=== PATIENT | male | born 1980 ===

== ENCOUNTER 2017-03-31 11:19 | Emergency (ER) | payer OTHER ==
[2017-03-31 11:25] VITALS: BMI 27.3
[2017-03-31 11:29] VITALS: RESP 18; O2SAT 98
--- NOTE | 2017-03-31 13:04 | RAD ---
PROCEDURE: Right Hand Radiographs. HISTORY: Fractured 2 days ago. Splinted at other hospital. COMPARISON: None. FINDINGS: BONES: Cast obscures fine bony details. There is an acute comminuted displaced fracture in the distal aspect of the proximal phalanx of the 4th finger. JOINTS: Normal. No osteoarthritic changes. SOFT TISSUES: Normal. OTHER FINDINGS: None. IMPRESSION: Acute comminuted displaced fracture in the distal aspect of the proximal phalanx of the 4th finger. Please note cast obscures fine bony details.
--- NOTE | 2017-03-31 13:41 | C.PDOC ---
History Of Present Illness Pt states that a log fell on his right hand 2 days ago causing a fracture of his right ring finger. He was seen at an ED and placed in a splint. He is here requesting orthopedic followup. Time Seen by Provider: 03/31/17 11:57 Chief Complaint (Nursing): Finger,Hand,&Wrist History Per: Patient Onset/Duration Of Symptoms: Days (2) Current Symptoms Are (Timing): Still Present Severity: Moderate Additional History Per: Prior Records Past Medical History Reviewed: Historical Data, Nursing Documentation, Vital Signs Vital Signs: Last Vital Signs Temp 99 F 03/31/17 11:26 Pulse 107 H 03/31/17 11:26 Resp 18 03/31/17 11:26 BP 118/86 03/31/17 11:26 Pulse Ox 98 03/31/17 11:26 - Medical History PMH: No Chronic Diseases - [facility] Procedures DPT ADMINISTRATION (09/27/14) REMOV THERAPEUT DEV NEC (10/03/14) Family History: States: Unknown Family Hx - Social History Hx Alcohol Use: Yes Hx Substance Use: No - Immunization History Hx Tetanus Toxoid Vaccination: Yes Hx Influenza Vaccination: No Hx Pneumococcal Vaccination: No Review Of Systems Except As Marked, All Systems Reviewed And Found Negative. Constitutional: Negative for: Fever, Weakness Cardiovascular: Negative for: Chest Pain Respiratory: Negative for: Shortness of Breath Gastrointestinal: Negative for: Vomiting, Abdominal Pain Musculoskeletal: Positive for: Hand Pain (right). Negative for: Neck Pain Neurological: Negative for: Weakness, Numbness Physical Exam - Physical Exam Appears: Non-toxic, No Acute Distress Skin: Warm, Dry Head: Atraumatic, Normacephalic Eye(s): bilateral: PERRL, EOMI Neck: Normal ROM, No Midline Cervical Tenderness, No Step Off Deformity, Supple Extremity: Capillary Refill (wnl), Other (Right hand in a splint. Splint is clean, dry and intact.) Neurological/Psych: Oriented x3, Normal Motor, Normal Sensation ED Course And Treatment O2 Sat by Pulse Oximetry: 98 Pulse Ox Interpretation: Normal - Other Rad Right hand x-rays X-Ray: Viewed By Me, Read By Radiologist Interpretation: IMPRESSION: Acute comminuted displaced fracture in the distal aspect of the proximal phalanx of the 4th finger. Please note cast obscures fine bony details. Disposition Discussed With : Kvng Cooper (Hand surg.) Comment: I discussed with him the pt's presentation and x-ray findings. He states that he wants to see pt in his office. Doctor Will See Patient In The: Office Counseled Patient/Family Regarding: Studies Performed, Diagnosis, Need For Followup, Rx Given - Disposition Referrals: Kvng Cooper MD [Staff Provider] - Disposition: HOME/ ROUTINE Disposition Time: 13:43 Condition: FAIR Additional Instructions: Follow up with the Hand Surgeon for further evaluation and treatment. Return to the ER if you develop severe pain, weakness, numbness, worsening of symptoms or if you have any other concerns. Prescriptions: traMADol/Acetaminophen [Ultracet 325 MG-37.5 MG] 1 tab PO Q4 PRN #30 tab PRN Reason: Pain, Severe (8-10) Instructions: Finger Fracture (ED) - Clinical Impression Clinical Impression: Fracture of proximal phalanx of right ring finger
[2017-03-31 13:53] VITALS: BP 120/84; PULSE 98; TEMP 98.9
== END 2017-03-31 14:39 | disposition home or self-care (01) ==
LOC: C.ER 11:19
DX: S62.614D Displaced fracture of proximal phalanx of right ring finger, subsequent encounter for fracture with routine healing (principal); W22.8XXD Striking against or struck by other objects, subsequent encounter

== ENCOUNTER 2017-04-04 14:29 | Emergency (ER) | payer SELFPAY ==
[2017-04-04 14:29] VITALS: BMI 27.3
--- NOTE | 2017-04-04 16:34 | C.PDOC ---
History Of Present Illness 37 year old male presents to the ED for evaluation of a rash which began to the left side of his neck last night. He states the rash came on quickly and forcefully and is burning in nature. The rash does not cross the midline of his neck. Patient also complains of a rash that goes across his anterior abdomen which has been present for 2 months. Patient denies itchiness or burning to the area. Patient also complains of cough, watery eyes, runny nose, fever and sore throat for 4 days. Patient denies abdominal pain, nausea, vomiting, chest pain, and shortness of breath. Time Seen by Provider: 04/04/17 16:13 Chief Complaint (Nursing): Abnormal Skin Integrity History Per: Patient History/Exam Limitations: no limitations Onset/Duration Of Symptoms: Days Current Symptoms Are (Timing): Still Present Location Of Injury: Left: Neck, Anterior: Abdomen Quality Of Symptoms: Itching, Other (burning ) Additional History Per: Patient Past Medical History Reviewed: Historical Data, Nursing Documentation, Vital Signs Vital Signs: Last Vital Signs Temp 99.9 F H 04/04/17 16:43 Pulse 106 H 04/04/17 16:43 Resp 18 04/04/17 16:43 BP 112/76 04/04/17 16:43 Pulse Ox 127 H 04/04/17 17:39 - Medical History PMH: No Chronic Diseases Surgical History: No Surg Hx - [facility] Procedures DPT ADMINISTRATION (09/27/14) REMOV THERAPEUT DEV NEC (10/03/14) Family History: States: Unknown Family Hx - Social History Hx Alcohol Use: Yes Hx Substance Use: No - Immunization History Hx Tetanus Toxoid Vaccination: Yes Hx Influenza Vaccination: No Hx Pneumococcal Vaccination: No Review Of Systems Constitutional: Positive for: Fever, Chills Eyes: Positive for: Other (watery eyes ) ENT: Positive for: Nose Discharge, Throat Pain Cardiovascular: Negative for: Chest Pain, Palpitations Respiratory: Positive for: Cough. Negative for: Shortness of Breath Gastrointestinal: Negative for: Abdominal Pain Skin: Positive for: Rash (to left side of neck and across anterior abdomen ) Physical Exam - Physical Exam Appears: Non-toxic, No Acute Distress Skin: Warm, Dry, Rash (vesicular to left side of neck that is consistent with zoster. flat, nondescript papular rash over abdomen ), Other (flushed face ) Head: Atraumatic, Normacephalic Eye(s): bilateral: Other (watery ) Oral Mucosa: Moist Throat: Erythema (mild) Neck: Supple Chest: Symmetrical, No Deformity, No Tenderness Cardiovascular: Rhythm Regular, No Murmur Respiratory: Normal Breath Sounds, No Rales, No Rhonchi, No Wheezing Gastrointestinal/Abdominal: Soft, No Tenderness, No Guarding, No Rebound Back: No Vertebral Tenderness, No Paraspinal Tenderness Extremity: Normal ROM, Capillary Refill (less than 2 seconds ) Neurological/Psych: Oriented x3, Normal Speech, Normal Cognition ED Course And Treatment O2 Sat by Pulse Oximetry: 127 Medical Decision Making Medical Decision Making: Progress: Motrin PO administered. Patient found to be febrile with oral temperature of 100.8 in the ED. Will treat for Zoster and Influenza. Disposition Counseled Patient/Family Regarding: Diagnosis, Need For Followup, Rx Given - Disposition Referrals: at [facility] [Outside] Disposition: HOME/ ROUTINE Disposition Time: 16:29 Condition: STABLE Prescriptions: Ibuprofen [Motrin] 1 tab PO TID PRN #30 tab PRN Reason: Pain Oseltamivir [Tamiflu] 1 cap PO BID #10 cap Prednisone [Deltasone] 60 mg PO DAILY #15 tablet Valacyclovir HCl [Valtrex] 1,000 mg PO BID #20 tablet Instructions: Shingles (ED), Viral Syndrome (ED) Forms: Gen Discharge Inst [place], [facility] ([place]), Work Excuse - POA Present On Arrival: None - Clinical Impression Clinical Impression: Zoster, Viral syndrome - Scribe Statement The provider has reviewed the documentation as recorded by the Marisolibe (Trupti Talbot) Provider Attestation: All medical record entries made by the Scribe were at my direction and personally dictated by me. I have reviewed the chart and agree that the record accurately reflects my personal performance of the history, physical exam, medical decision making, and the department course for this patient. I have also personally directed, reviewed, and agree with the discharge instructions and disposition.
[2017-04-04 16:44] VITALS: BP 112/76; PULSE 106; RESP 18; TEMP 99.9
[2017-04-04 17:20] VITALS: O2SAT 127
== END 2017-04-04 16:50 | disposition home or self-care (01) ==
LOC: C.ER 14:29
DX: B02.9 Zoster without complications (principal); B34.9 Viral infection, unspecified

== ENCOUNTER 2017-04-21 12:35 | Day surgery (SDC) | payer SELFPAY ==
[2017-04-19 15:23] VITALS: BMI 27.4
[2017-04-21] MEDS ORDERED: ceFAZolin IV 2 gm in Dextrose 2 GM/50 ML BAG IVPB ONE (13:41)
[2017-04-21] MEDS ORDERED: Bacitracin Ointment 30 GM TUBE ONE (13:42)
[2017-04-21] MEDS ORDERED: Bupivacaine HCl 0.5% PF (10 ml) Inj ONE (13:42)
[2017-04-21] MEDS ORDERED: Lidocaine 1% Inj (20ml) ONE (14:09)
[2017-04-21] MEDS ORDERED: Lactated Ringer's 1,000 ML IV ONE (14:10)
[2017-04-21] MEDS ORDERED: Midazolam 2 MG/2 ML VIAL ONE (14:18)
[2017-04-21] MEDS ORDERED: Propofol 10 mg/ml Inj (20 ML) ONE (14:18)
[2017-04-21] MEDS ORDERED: Lidocaine Hydrochloride 5 ML INJ ONE (14:18)
[2017-04-21] MEDS ORDERED: ePHEDrine 50 mg/ml Inj ONE (14:53)
--- NOTE | 2017-04-21 16:18 | CP.SDSHP ---
Same Day Surgery H & P - History Proposed Procedure: ORIF - Allergies Allergies: Allergies No Known Allergies Allergy (Verified 04/04/17 14:52) - Physical Exam General Appearance: Well apearing no acute distress Vital Signs: Vital Signs 04/21/17 12:44 Temperature 98.4 F Pulse Rate 81 Respiratory 20 Rate Blood Pressure 113/72 O2 Sat by Pulse 98 Oximetry Neuro: WNL Heart: WNL Lungs: WNL GI: WNL - Impression Impression: Healthy and ready for operation Pt. Evaluated Today:Candidate for Anesthesia & Procedure: Yes - Date & Time Date: 04/21/17 Time: 16:16 Short Stay Discharge - Short Stay Discharge Admitting Diagnosis/Reason for Visit: DISP FX OF PROXIMAL PHALANX OF RIGHT RING FINGER, Disposition: HOME/ ROUTINE Follow-up: 7 days Instructions: ORIF (DC) Additional Instructions (Diet, Activity): Take percet as direted for pain dont operate heavy machinery whoike on medication, you may ice your arm as necessary, elevate your arm. Take keflex antibiotic as directed. If you develop new or worsening symptoms call the office or go to the ED.
--- NOTE | 2017-04-21 16:21 | PCM.SURG1 ---
Surgeon's Initial Post Op Note - Surgeon's Notes Surgeon: Dr. Melchor Kelp Or Seagrass Gatherer: Dr. Bourgeois PGY2 Type of Anesthesia: General Endo Pre-Operative Diagnosis: Right 3rd digit fracture Operative Findings: See operative diciation Post-Operative Diagnosis: Right 3rd digit fracture Operation Performed: ORIF of finger with 3X K wire placement Specimen/Specimens Removed: None Estimated Blood Loss: EBL {In ML}: 5 Blood Products Given: N/A Drains Used: No Drains Post-Op Condition: Good Date of Surgery/Procedure: 04/21/17 Time of Surgery/Procedure: 16:20
[2017-04-21 16:39] VITALS: TEMP 97.9; O2SAT 100
[2017-04-21 16:52] VITALS: BP 118/76; PULSE 82; RESP 12
--- NOTE | 2017-04-23 09:36 | OP ---
PROCEDURE DATE: 04/21/2017 SURGEON: Hanna Melchor MD COOLER WORKER: Milo Bourgeois DO PGY2 PREOPERATIVE DIAGNOSIS: Right ring finger displaced proximal phalanx fracture. POSTOPERATIVE DIAGNOSIS: Right ring finger displaced and angulated proximal phalanx fracture. TYPE OF ANESTHESIA: General endotracheal anesthesia. PROCEDURE: 1. Right wrist block. 2. Open reduction and internal fixation with K-wires of right ring finger proximal phalanx shaft and neck fracture. COUNTS: Lap, sponge and needle counts were correct at the end of the case. TOURNIQUET TIME: 37 minutes. CONDITION: The patient was stable upon discharge to recovery. INDICATIONS FOR SURGERY: The patient is a 37-year-old male, who sustained a crush injury to his right hand where right ring finger proximal phalanx was fractured and the distal segment angulated. Attempts at closed reduction will be tried first, and if unsuccessful, open reduction and internal fixation is planned. DESCRIPTION OF PROCEDURE: Surgery is as follows: The patient was identified in the holding area. The right arm was marked. He was then brought to the operating room and laid supine on the operating room table. Once anesthesia was induced, the right wrist was blocked using 10 mL of 0.5% Marcaine and 1% lidocaine in a 50:50 mixture; 10 mL was used to infiltrate the median nerve, ulnar nerve, radial sensory and ulnar sensory nerves. The right arm was then placed in the tourniquet, and prepped and draped in the usual sterile fashion. Beginning with fluoroscopy, the finger was manipulated and attempts of reduction was tried. The K-wire was placed across the distal fragment at the level of the PIP joint in order to try to joystick down the dorsally angulated distal fragments without success. Decision was made to open up the fracture site. Using Esmarch, the arm was exsanguinated and tourniquet inflated to 250 mm of pressure for a total of 37 minutes. Using incision on the dorsum of the hand, from the PIP joint to the middle aspect of the middle phalanx, the incision was taken down through skin and dermis. Extensor tendon was then divided; immediately below the extensor tendon, the fracture was identified. There were significant granulation tissue in the wound, but no callus formation; however, the distal segment was subluxed under the proximal fragment and dorsally angulated. Attempts at reducing the fracture proved to be unstable. Using a single hook, the distal fragment's leading proximal edge was elevated. A K-wire was then placed across the DIP joint into the proximal phalanx without much success. However, this stabilized the fracture enough and reducing it in the lateral position that the K-wire was able to be placed from the distal phalanx into the middle phalanx across the PIP joint, and under direct fluoroscopy, into the proximal phalanx. Once this 0.045 K-wire was placed down the middle of all 3 phalanx, 2 separate additional K-wires, a 0.045 K-wire and a 0.035 K-wire were placed in a antonio-cross manner from the middle phalanx base across the PIP and into the distal phalanx fracture and then into the proximal phalanx base. The position was verified in all 3 views, lateral, AP and oblique. Once the position was confirmed, the tourniquet was deflated and pressure held for 5 minutes. Any bleeding was controlled with electrocautery. The extensor tendon was repaired using 4-0 Vicryl in an interrupted fashion. The skin was closed using 5-0 chromic in an interrupted horizontal mattress and simple mattress fashion. The K-wires were bend at a position, trimmed and capped with Jurgan Balls. The patient was then placed in an ulnar gutter splint with Adaptic, Bacitracin, 4 x 4 gauze, Kerlix and secured in place with an Juan Antonio wrap and an ulnar gutter splint. The patient tolerated the procedure well, was extubated on the table, transferred to a stretcher, and brought to recovery in stable condition. Hanna Melchor MD GREY
== END 2017-04-21 17:41 | disposition home or self-care (01) ==
LOC: C.SDS 12:35
PROVIDERS: ATTEND Plastic Surgery Surgery of the Hand
DX: S62.614A Displaced fracture of proximal phalanx of right ring finger, initial encounter for closed fracture (principal); W23.0XXA Caught, crushed, jammed, or pinched between moving objects, initial encounter
CPT/HCPCS: 26735; J0690; J2250; J2405; J2704; J3010; J7120